=== PATIENT | male | born 1950 ===

== ENCOUNTER 2022-07-08 06:52 | Day surgery (SDC) | payer OTHER | END 2022-07-08 13:15 | disposition home or self-care (01) | LOC: AMB-ENDOS 06:52 | PROVIDERS: ATTEND Colon & Rectal Surgery | DX: D12.0 Benign neoplasm of cecum (principal); K57.30 Diverticulosis of large intestine without perforation or abscess without bleeding; K62.5 Hemorrhage of anus and rectum; R19.4 Change in bowel habit; Z20.822 Contact with and (suspected) exposure to COVID-19; Z11.59 Encounter for screening for other viral diseases; Z20.828 Contact with and (suspected) exposure to other viral communicable diseases ==